=== PATIENT | male | born 1965 | race American Indian/Alaskan Native ===

== ENCOUNTER 2021-01-22 13:23 | Emergency (ER) | payer MEDICARE ==
[2021-01-22] MEDS ORDERED: methylPREDNISolone ACETATE 80 MG/1 ML INJ IM ONE (14:00)
--- NOTE | 2021-01-22 14:05 | Emergency Department Report ---
ED General Adult HPI - General Chief complaint: Extremity Problem,Nontraumatic Stated complaint: RT KNEE/LEG PAIN PUI?: No Time Seen by Provider: 01/22/21 14:00 Source: patient Mode of arrival: Wheelchair Limitations: No Limitations - History of Present Illness Initial comments: 55 yo AA comes to ER with r knee pain. Bumped it the other day and since has been sore and swollen. Also co distal swelling of that leg Comes to ER via [facility] -: Gradual, days(s) Location: lower extremity Radiation: other Quality: aching Consistency: constant Improves with: none Worsens with: none Associated Symptoms: denies other symptoms Treatments Prior to Arrival: none - Related Data Previous Rx's Medication Instructions Recorded Last Taken Type predniSONE [Deltasone] 20 mg PO DAILY #5 tablet 01/22/21 Unknown Rx traMADoL [Ultram] 50 mg PO Q6HR PRN #10 tablet 01/22/21 Unknown Rx Allergies Allergy/AdvReac Type Severity Reaction Status Date / Time No Known Allergies Allergy Verified 09/18/14 01:28 ED Review of Systems ROS: Stated complaint: RT KNEE/LEG PAIN Other details as noted in HPI Comment: All other systems reviewed and negative ED Past Medical Hx - Past Medical History Previous Medical History?: Yes Hx Hypertension: Yes Additional medical history: high chol; gout; cad - Surgical History Past Surgical History?: Yes Additional Surgical History: eye surgery, abdominal surgery for perf x 2 in 90's - Family History Family history: no significant - Social History Smoking Status: Never Smoker Substance Use Type: None (not in 20 years) - Medications Home Medications: Home Medications Medication Instructions Recorded Confirmed Last Taken Type predniSONE [Deltasone] 20 mg PO DAILY #5 tablet 01/22/21 Unknown Rx traMADoL [Ultram] 50 mg PO Q6HR PRN #10 tablet 01/22/21 Unknown Rx ED Physical Exam - General Limitations: No Limitations General appearance: alert, in no apparent distress - Head Head exam: Present: atraumatic, normocephalic - Eye Eye exam: Present: normal appearance - ENT ENT exam: Present: mucous membranes moist - Neck Neck exam: Present: normal inspection - Respiratory Respiratory exam: Present: normal lung sounds bilaterally. Absent: respiratory distress - Cardiovascular Cardiovascular Exam: Present: regular rate, normal rhythm. Absent: systolic murmur, diastolic murmur, rubs, gallop - GI/Abdominal GI/Abdominal exam: Present: soft, normal bowel sounds - Rectal Rectal exam: Present: deferred - Extremities Exam Extremities exam: Present: normal inspection - Expanded Lower Extremity Exam Right Upper Leg exam: Present: normal inspection Knee exam: Present: full ROM, tenderness, swelling. Absent: abrasion, laceration, ecchymosis, deformity, crepidus Lower Leg exam: Present: normal inspection - Back Exam Back exam: Present: normal inspection - Neurological Exam Neurological exam: Present: alert, oriented X3 - Psychiatric Psychiatric exam: Present: normal affect, normal mood - Skin Skin exam: Present: warm, dry, intact, normal color. Absent: rash ED Course Vital Signs 01/22/21 13:38 Temperature 98 F Pulse Rate 87 Respiratory 20 Rate Blood Pressure 152/89 [Right] O2 Sat by Pulse 98 Oximetry - Reevaluation(s) Reevaluation #1: 01/22/21 15:09 home meds hctz norvasc k- ran out imdur has cad - but not bad enough for stents denies cp or sob ED Medical Decision Making - Lab Data Result diagrams: 01/22/21 14:38 - Medical Decision Making Vital Signs 01/22/21 13:38 Temperature 98 F Pulse Rate 87 Respiratory 20 Rate Blood Pressure 152/89 [Right] O2 Sat by Pulse 98 Oximetry Lab Results 01/22/21 Range/Units 14:38 WBC 9.1 (4.5-11.0) K/mm3 RBC 4.67 (3.65-5.03) M/mm3 Hgb 13.2 (11.8-15.2) gm/dl Hct 38.4 (35.5-45.6) % MCV 82 L (84-94) fl MCH 28 (28-32) pg MCHC 34 (32-34) % RDW 16.0 H (13.2-15.2) % Plt Count 349 (140-440) K/mm3 no fall or trauma- xray not indicated has hx of gout medicated in er with relief of pain pt walks with walker per air liaison and special staff dc home with dc plan of care. Pt verbalizes understanding of plan of care including diet, activity, meds and follow up - Differential Diagnosis gout/oa Critical care attestation.: If time is entered above; I have spent that time in minutes in the direct care of this critically ill patient, excluding procedure time. ED Disposition Clinical Impression: Knee pain, Arthritis Disposition: 01 HOME / SELF CARE / HOMELESS Is pt being admited?: No Does the pt Need Aspirin: No Condition: Stable Instructions: Acute Knee Pain, Adult Additional Instructions: MEDS ORDERED CONTINUE HOME MEDS SEE PCP and or ortho MD iN 48 HOURS FOR RECHECK REFERRALs BELOW kasia and crutches for comfort Prescriptions: predniSONE [Deltasone] 20 mg PO DAILY #5 tablet traMADoL [Ultram] 50 mg PO Q6HR PRN #10 tablet PRN Reason: Pain Referrals: KARLA LEONARD MD [Staff Physician] - 3-5 Days DENISHA MIRANDA MD [Staff Physician] - 3-5 Days Time of Disposition: 15:09
[2021-01-22 15:15] LABS: Hematocrit 38.4 % (35.5-45.6); Hemoglobin 13.2 gm/dl (11.8-15.2); Mean Corpuscular HGB Conc 34 % (32-34); Mean Corpuscular Volume 82 fl (84-94); Platelet Count 349 K/mm3 (140-440); Red Blood Count 4.67 M/mm3 (3.65-5.03)
[2021-01-22 16:28] LABS: Alanine Aminotransferase 17 units/L (7-56); Albumin 3.9 g/dL (3.9-5); BUN/Creatinine Ratio 13; Blood Urea Nitrogen 10 mg/dL (9-20); Calcium 9.2 mg/dL (8.4-10.2); Hemolysis Index 49; Uric Acid 5.4 mg/dL (3.5-7.6)
[2021-01-22 16:43] VITALS: BP 119/75
== END 2021-01-22 16:43 | disposition home or self-care (01) ==
LOC: ED 13:23
DX: M19.90 Unspecified osteoarthritis, unspecified site (principal); M25.561 Pain in right knee; I10 Essential (primary) hypertension; E78.00 Pure hypercholesterolemia, unspecified
CPT/HCPCS: 36415; 80053; 84550; 85027; 96372; 99283; J1040

== ENCOUNTER 2021-02-17 12:55 | Emergency (ER) | payer MEDICARE ==
[2021-02-17] MEDS ORDERED: KETOROLAC 60 MG/2 ML INJ IM ONE (17:20)
--- NOTE | 2021-02-17 17:24 | Emergency Department Report ---
ED Extremity Problem HPI - General Chief complaint: Extremity Injury, Lower Stated complaint: RT KNEE SWOLLEN/PAIN Time Seen by Provider: 02/17/21 17:15 Source: patient Mode of arrival: Ambulatory Limitations: No Limitations - History of Present Illness Initial comments: Patient is a 55-year-old male presents emergency room complaints of right knee pain and swelling that began approximately 3 days ago. Patient states he had similar symptoms almost a month ago and was seen in the emergency room at that time and had lab work performed which was stable. He states he lost his paperwork so therefore did not follow-up with primary care or orthopedic. He states a week or 2 ago he accidentally hit his right knee against a TV stand. He is ambulatory. He denies any numbness or weakness. Past medical history of hypertension, hyperlipidemia, and borderline diabetes. No allergies to medications. - Related Data Previous Rx's Medication Instructions Recorded Last Taken Type Ondansetron [Zofran Odt] 4 mg PO Q8HR PRN #20 tab.rapdis 01/22/21 Unknown Rx predniSONE [Deltasone] 20 mg PO DAILY #5 tablet 01/22/21 Unknown Rx traMADoL [Ultram] 50 mg PO Q6HR PRN #10 tablet 01/22/21 Unknown Rx Meloxicam [Mobic] 7.5 mg PO QDAY #14 tablet 02/17/21 Unknown Rx Allergies Allergy/AdvReac Type Severity Reaction Status Date / Time No Known Allergies Allergy Verified 09/18/14 01:28 ED Review of Systems ROS: Stated complaint: RT KNEE SWOLLEN/PAIN Other details as noted in HPI Comment: All other systems reviewed and negative ED Past Medical Hx - Past Medical History Hx Hypertension: Yes Additional medical history: high chol; gout; cad - Surgical History Additional Surgical History: eye surgery, abdominal surgery for perf x 2 in 's - Social History Smoking Status: Never Smoker - Medications Home Medications: Home Medications Medication Instructions Recorded Confirmed Last Taken Type Ondansetron [Zofran Odt] 4 mg PO Q8HR PRN #20 tab.rapdis 01/22/21 Unknown Rx predniSONE [Deltasone] 20 mg PO DAILY #5 tablet 01/22/21 Unknown Rx traMADoL [Ultram] 50 mg PO Q6HR PRN #10 tablet 01/22/21 Unknown Rx Meloxicam [Mobic] 7.5 mg PO QDAY #14 tablet 02/17/21 Unknown Rx ED Physical Exam - General Limitations: No Limitations General appearance: alert, in no apparent distress - Head Head exam: Present: atraumatic, normocephalic - Eye Eye exam: Present: normal appearance - ENT ENT exam: Present: mucous membranes moist - Extremities Exam Extremities exam: Present: other (ttp to the right knee, moderate edema present, mild increased warmth, no erythema, no skin changes, FROM of the RLE, able to flex greater than 90 degrees, neurovascularly intact) - Neurological Exam Neurological exam: Present: alert, oriented X3 - Psychiatric Psychiatric exam: Present: normal affect, normal mood - Skin Skin exam: Present: warm, dry, intact ED Course Vital Signs 02/17/21 02/17/21 17:00 18:55 Temperature 97.9 F Pulse Rate 80 91 H Respiratory 18 16 Rate Blood Pressure 122/80 Blood Pressure 130/79 [Right] O2 Sat by Pulse 98 97 Oximetry ED Medical Decision Making - Radiology Data Radiology results: report reviewed Ordering Physician: EROS GOMEZ Date of Service: 02/17/21 Procedure(s): XR knee 3V RT Accession Number(s): [id number] cc: EROS GOMEZ Fluoro Time In Minutes: Right knee 3 views INDICATION: Right knee pain. IMPRESSION: There is a large right knee effusion. No discrete fracture or subluxation is identified however there is mild osteopenia within the right knee. If pain persists recommend dedicated cross- sectional imaging to exclude occult fracture. Signer Name: Denton Cueto MD Signed: 02/17/2021 6:01 PM Workstation Name: [id number] Transcribed By: Dictated By: Denton Cueto MD Electronically Authenticated By: Denton Cueto MD Signed Date/Time: 02/17/211800 DD/ 1800 TD/TT: - Medical Decision Making Patient is a 55-year-old male presents emergency room complaints of right knee pain and swelling that began approximately 3 days ago. Patient states he had similar symptoms almost a month ago and was seen in the emergency room at that time and had lab work performed which was stable. He states he lost his paperwork so therefore did not follow-up with primary care or orthopedic. He states a week or 2 ago he accidentally hit his right knee against a TV stand. He is ambulatory. He denies any numbness or weakness. Past medical history of hypertension, hyperlipidemia, and borderline diabetes. No allergies to medications. Vitals are normal. Patient is afebrile, no tachycardia. On exam:ttp to the right knee, moderate edema present, mild increased warmth, no erythema, no skin changes, FROM of the RLE, able to flex greater than 90 degrees, neurovascularly intact. Patient has no clinical signs of septic joint or cellulitis. Patient does not need emergent arthrocentesis at this time as he is able to flex greater than 90 degrees. X-ray right knee: There is a large right knee effusion. No discrete fracture or subluxation is identified however there is mild osteopenia within the right knee. If pain persists recommend dedicated cross-sectional imaging to exclude occult fracture. Patient placed in knee immobilizer and discussed the importance of orthopedic follow-up for further evaluation. Discussed strict return precautions with patient. Advised patient please take medication as prescribed. follow up with a primary care doctor. follow up with an orthopedic doctor. return to the emergency room for any new or worsening symptoms. Critical care attestation.: If time is entered above; I have spent that time in minutes in the direct care of this critically ill patient, excluding procedure time. ED Disposition Clinical Impression: Knee pain Qualifiers: Chronicity: acute Laterality: right Qualified Code(s): M25.561 - Pain in right knee Knee effusion Qualifiers: Laterality: right Qualified Code(s): M25.461 - Effusion, right knee Disposition: 01 HOME / SELF CARE / HOMELESS Is pt being admited?: No Does the pt Need Aspirin: No Condition: Stable Instructions: Acute Knee Pain, Adult, Knee Effusion Additional Instructions: please take medication as prescribed. follow up with a primary care doctor. follow up with an orthopedic doctor. return to the emergency room for any new or worsening symptoms. Prescriptions: Meloxicam [Mobic] 7.5 mg PO QDAY #14 tablet Referrals: DENISHA MIRANDA MD [Staff Physician] - 2-3 Days [facility] [Provider Group] - 2-3 Days PRIMARY CAREMD [Primary Care Provider] - 2-3 Days Time of Disposition: 18:29 Print Language: [place]
--- NOTE | 2021-02-17 18:05 | XRay Report ---
Right knee 3 views INDICATION: Right knee pain. IMPRESSION: There is a large right knee effusion. No discrete fracture or subluxation is identified h owever there is mild osteopenia within the right knee. If pain persists recommend dedicated cross-sec tional imaging to exclude occult fracture. Signer Name: Denton Cueto MD Signed: 02/17/2021 6:01 PM Workstation Name: [id number]
[2021-02-17 18:56] VITALS: BP 130/79
[2021-02-17] MEDS ORDERED: HYDROcodone/ACETAMINOPHEN 5-325 MG TAB PO ONE (18:57)
== END 2021-02-17 19:00 | disposition home or self-care (01) ==
LOC: ED 12:55
DX: M25.461 Effusion, right knee (principal); M25.561 Pain in right knee; I10 Essential (primary) hypertension; E78.00 Pure hypercholesterolemia, unspecified
CPT/HCPCS: 29505; 73562; 99283; J1885